=== PATIENT | female | born 1935 | race African-American/Black ===

== ENCOUNTER → 2016-10-17 | Outpatient (CLI) | payer MEDICARE, OTHER ==
[~2016-10-17] MED LIST: ASP81EC PO; ATEN-60 PO; BACL20TA PO; HYDR25TA4 PO; LISI40TA PO; NITR-48 PO; POTA20TA53 PO
[2016-10-17 14:49] LABS: Basophils # (auto) 0 uL; Basophils % (auto) 0.6 % (0.0-2.0); DEFINITIVE VIEW TRANSMISSION; Eosinophils # (auto) 0.2 uL; Eosinophils % (auto) 3.5 % (0.0-7.0); Hematocrit 43.1 % (36.0-46.0); Hemoglobin 14.3 g/dL (12.2-16.2); Lymphocytes # (auto) 2.4 uL; Lymphocytes % (auto) 41.9 % (10.0-50.0); Mean Corpuscular Hemoglobin 26.8 pg (28.0-32.0); Mean Corpuscular Hgb Conc. 33.2 g/dL (32.0-36.0); Mean Corpuscular Volume 80.7 fL (80.0-100.0); Mean Platelet Volume 8.4 fL (7.4-10.4); Monocytes # (auto) 0.7 uL; Monocytes % (auto) 11.9 % (0.0-12.0); Neutrophils # (auto) 2.4 uL; Neutrophils % (auto) 42.1 % (37.0-80.0); Platelet Count (auto) 305 10^3/uL (140-450); White Blood Cell 5.7 10^3/uL (4.4-10.8)
[2016-10-17 14:55] LABS: Urine Bilirubin Negative (Negative); Urine Blood Negative /uL (Negative); Urine Color Yellow (Yellow); Urine Glucose Normal (Normal); Urine Ketone Negative (Negative); Urine RBC 1 /hpf (0 - 4); Urine Squamous Epithelial Cell MOD /hpf (<5); Urine Urobilinogen Normal (Negative); Urine pH 5.5 (5.0-8.0)
[2016-10-17 14:56] LABS: Urine Nitrite POSITIVE (Negative)
[2016-10-17 15:07] LABS: BUN/Creatinine Ratio 12.2; Calcium 8.5 mg/dL (8.5-10.1); Potassium 3.6 mmol/L (3.5-5.1)
== END | disposition home or self-care (01) ==
LOC: LAB 13:15
PROVIDERS: ATTEND Internal Medicine
DX: Z00.00 Encounter for general adult medical examination without abnormal findings (principal); E78.2 Mixed hyperlipidemia; I10 Essential (primary) hypertension; E11.9 Type 2 diabetes mellitus without complications; E55.9 Vitamin D deficiency, unspecified
CPT/HCPCS: 36415; 80048; 80061; 81001; 82306; 83036; 84443; 85025

== ENCOUNTER → 2017-05-01 | Outpatient (CLI) | payer MEDICARE, OTHER ==
[2017-05-01 14:59] LABS: Basophils # (auto) 0 uL; Basophils % (auto) 0.7 % (0.0-2.0); Eosinophils # (auto) 0.1 uL; Eosinophils % (auto) 2.4 % (0.0-7.0); Hematocrit 42.7 % (36.0-46.0); Hemoglobin 14.6 g/dL (12.2-16.2); Lymphocytes # (auto) 2.2 uL; Lymphocytes % (auto) 38.3 % (10.0-50.0); Mean Corpuscular Hemoglobin 27.9 pg (28.0-32.0); Mean Corpuscular Hgb Conc. 34.2 g/dL (32.0-36.0); Mean Corpuscular Volume 81.7 fL (80.0-100.0); Monocytes # (auto) 0.8 uL; Monocytes % (auto) 14.1 % (0.0-12.0); Neutrophils # (auto) 2.6 uL; Neutrophils % (auto) 44.5 % (37.0-80.0); Nucleated Red Blood Cells % 0.7 %; Platelet Count (auto) 243 10^3/uL (140-450); Red Cell Distribution Width 13.7 % (11.8-14.3); White Blood Cell 5.9 10^3/uL (4.4-10.8)
[2017-05-01 15:25] LABS: BUN/Creatinine Ratio 14.4; Bilirubin, Total 1.1 mg/dL (0.2-1.0); Calcium 8.5 mg/dL (8.5-10.1); Potassium 3.6 mmol/L (3.5-5.1); Total Protein 8.4 g/dL (6.4-8.2)
== END | disposition home or self-care (01) ==
LOC: LAB 14:43
PROVIDERS: ATTEND Physician Assistant
DX: I12.9 Hypertensive chronic kidney disease with stage 1 through stage 4 chronic kidney disease, or unspecified chronic kidney disease (principal); N18.3 Chronic kidney disease, stage 3 (moderate); M06.30 Rheumatoid nodule, unspecified site
CPT/HCPCS: 36415; 80053; 80061; 85025

== ENCOUNTER 2017-10-26 13:30 | Emergency (ER) | payer MEDICARE, OTHER ==
[~2017-10-26] VITALS: Ht 157.5 cm; Wt 87.5 kg
[2017-10-26 14:46] VITALS: BP 141/72
[2017-10-26 16:23] LABS: Urine Bacteria MANY /hpf (None Seen); Urine Blood Negative /uL (Negative); Urine Mucus FEW (None Seen); Urine Specific Gravity 1.013 (1.001-1.035); Urine WBC 223 /hpf (0 - 5)
[2017-10-26] MEDS ORDERED: cefTRIAXone SOD 1,000 MG VL IM ONE (16:30)
[2017-10-26] MEDS ORDERED: traMADol HCL 50 MG TAB PO ONE (16:30)
== END 2017-10-26 17:16 | disposition home or self-care (01) ==
LOC: ER 13:36
DX: M48.061 Spinal stenosis, lumbar region without neurogenic claudication (principal); M54.16 Radiculopathy, lumbar region; N39.0 Urinary tract infection, site not specified; R51 Headache; I10 Essential (primary) hypertension; G89.29 Other chronic pain; Z90.710 Acquired absence of both cervix and uterus; Z90.49 Acquired absence of other specified parts of digestive tract; Z88.1 Allergy status to other antibiotic agents
CPT/HCPCS: 70450; 72131; 81001; 96372; 99285; J0696; 93005

== ENCOUNTER 2017-11-19 12:34 | Emergency (ER) | payer MEDICARE, OTHER ==
[~2017-11-19] VITALS: Ht 157.5 cm; Wt 86.2 kg
[2017-11-19 13:11] VITALS: BP 157/59
[2017-11-19] MEDS ORDERED: KETOROLAC TROMETH 60MG/2ML VIAL IM ONE (13:15)
[2017-11-19 14:29] LABS: Urine Bacteria MANY /hpf (None Seen); Urine Blood TRACE /uL (Negative); Urine Specific Gravity 1.012 (1.001-1.035); Urine WBC 179 /hpf (0 - 5)
[2017-11-19] MEDS ORDERED: CIPROFLOXACIN HCL 500 MG TAB PO ONE (15:15)
== END 2017-11-19 15:08 | disposition home or self-care (01) ==
LOC: ER 12:38
DX: N39.0 Urinary tract infection, site not specified (principal); M54.5 Low back pain; I25.810 Atherosclerosis of coronary artery bypass graft(s) without angina pectoris; I12.9 Hypertensive chronic kidney disease with stage 1 through stage 4 chronic kidney disease, or unspecified chronic kidney disease; N18.3 Chronic kidney disease, stage 3 (moderate); Z90.49 Acquired absence of other specified parts of digestive tract; Z90.710 Acquired absence of both cervix and uterus; Z88.6 Allergy status to analgesic agent
CPT/HCPCS: 74176; 81001; 96372; 99285; J1885; 93005

== ENCOUNTER → 2017-12-07 | Outpatient (CLI) | payer MEDICARE, OTHER | END | disposition home or self-care (01) | LOC: LAB 11:05 | PROVIDERS: ATTEND Physician Assistant | DX: N30.00 Acute cystitis without hematuria (principal); T83.511A Infection and inflammatory reaction due to indwelling urethral catheter, initial encounter; I12.9 Hypertensive chronic kidney disease with stage 1 through stage 4 chronic kidney disease, or unspecified chronic kidney disease; E11.22 Type 2 diabetes mellitus with diabetic chronic kidney disease; N18.3 Chronic kidney disease, stage 3 (moderate); Z79.899 Other long term (current) drug therapy; Z79.82 Long term (current) use of aspirin | CPT/HCPCS: 87086; 87088; 87186 ==

== ENCOUNTER 2018-07-30 17:51 | Emergency (ER) | payer MEDICARE, OTHER ==
[~2018-07-30] VITALS: Ht 154.9 cm; Wt 85.3 kg
[~2018-07-30 17:51] MED LIST changes: -NITR-48 PO; +NITR100C44 PO
[2018-07-30 18:56] LABS: Basophils # (auto) 0 uL; Eosinophils # (auto) 0.1 uL; Lymphocytes # (auto) 1.8 uL; Monocytes # (auto) 0.6 uL; Neutrophils # (auto) 2.9 uL; White Blood Cell 5.4 10^3/uL (4.4-10.8)
[2018-07-30 18:59] LABS: Basophils % (auto) 0.5 % (0.0-2.0); Eosinophils % (auto) 1.4 % (0.0-7.0); Hematocrit 43.6 % (36.0-46.0); Hemoglobin 14.7 g/dL (12.2-16.2); Lymphocytes % (auto) 33.2 % (10.0-50.0); Mean Corpuscular Hemoglobin 27.4 pg (28.0-32.0); Mean Corpuscular Hgb Conc. 33.7 g/dL (32.0-36.0); Mean Corpuscular Volume 81.1 fL (80.0-100.0); Monocytes % (auto) 11.6 % (0.0-12.0); Neutrophils % (auto) 53.3 % (37.0-80.0); Nucleated Red Blood Cells % 0.7 %; Platelet Count (auto) 247 10^3/uL (140-450); Red Blood Cells 5.38 10^6/uL (4.0-5.20); Red Cell Distribution Width 13.4 % (11.8-14.3)
[2018-07-30 19:09] LABS: Calcium 8.2 mg/dL (8.5-10.1); Potassium 3.1 mmol/L (3.5-5.1)
[2018-07-30 19:12] LABS: Bilirubin, Total 0.9 mg/dL (0.2-1.0); Total Protein 8.4 g/dL (6.4-8.2)
[2018-07-30 20:49] LABS: Amylase 82 U/L (25-115); Lipase 77 U/L (73-393)
[2018-07-30 23:00] VITALS: BP 148/86
[2018-07-30 23:30] LABS: Urine Bacteria MOD /hpf (None Seen); Urine Blood 1+ /uL (Negative); Urine Hyaline Cast FEW /lpf (0 - 2); Urine Specific Gravity 1.011 (1.001-1.035); Urine WBC 308 /hpf (0 - 5); Urine WBC Clumps PRESENT /hpf (None Seen)
== END 2018-07-31 01:51 | disposition home or self-care (01) ==
LOC: ER 17:56
DX: R10.31 Right lower quadrant pain (principal); I25.10 Atherosclerotic heart disease of native coronary artery without angina pectoris; I12.9 Hypertensive chronic kidney disease with stage 1 through stage 4 chronic kidney disease, or unspecified chronic kidney disease; N18.3 Chronic kidney disease, stage 3 (moderate); M06.9 Rheumatoid arthritis, unspecified; Z90.49 Acquired absence of other specified parts of digestive tract; Z90.710 Acquired absence of both cervix and uterus; Z98.61 Coronary angioplasty status
CPT/HCPCS: 36415; 74176; 80053; 81001; 82150; 83690; 84484; 85025; 93005; 94761

== ENCOUNTER → 2018-09-13 | Outpatient (CLI) | payer MEDICARE, OTHER ==
[2018-09-13 09:11] LABS: Basophils # (auto) 0 uL; Basophils % (auto) 0.6 % (0.0-2.0); Eosinophils # (auto) 0.2 uL; Eosinophils % (auto) 2.7 % (0.0-7.0); Hematocrit 43.3 % (36.0-46.0); Hemoglobin 14.5 g/dL (12.2-16.2); Lymphocytes # (auto) 2.3 uL; Lymphocytes % (auto) 40.7 % (10.0-50.0); Mean Corpuscular Hgb Conc. 33.5 g/dL (32.0-36.0); Mean Corpuscular Volume 80.8 fL (80.0-100.0); Monocytes # (auto) 0.8 uL; Monocytes % (auto) 14.9 % (0.0-12.0); Neutrophils # (auto) 2.3 uL; Neutrophils % (auto) 41.1 % (37.0-80.0); Nucleated Red Blood Cells % 0.1 %; Platelet Count (auto) 245 10^3/uL (140-450); Red Blood Cells 5.36 10^6/uL (4.0-5.20); White Blood Cell 5.7 10^3/uL (4.4-10.8)
[2018-09-13 10:19] LABS: Albumin 3.1 g/dL (3.4-5.0); BUN/Creatinine Ratio 15.7; Calcium 8.8 mg/dL (8.5-10.1); Potassium 3.5 mmol/L (3.5-5.1)
[2018-09-13 10:22] LABS: Bilirubin, Total 0.8 mg/dL (0.2-1.0); Total Protein 8.3 g/dL (6.4-8.2)
== END | disposition home or self-care (01) ==
LOC: LAB 08:59
PROVIDERS: ATTEND Physician Assistant
DX: I12.9 Hypertensive chronic kidney disease with stage 1 through stage 4 chronic kidney disease, or unspecified chronic kidney disease (principal); N18.3 Chronic kidney disease, stage 3 (moderate); M06.9 Rheumatoid arthritis, unspecified; M54.42 Lumbago with sciatica, left side; K57.90 Diverticulosis of intestine, part unspecified, without perforation or abscess without bleeding; G62.9 Polyneuropathy, unspecified
CPT/HCPCS: 36415; 80053; 80061; 85025

== ENCOUNTER → 2021-09-24 | Day surgery (SDC) | payer MEDICARE, OTHER ==
[2021-09-22 10:22] LABS: Basophils # (auto) 0 10 ^3/uL (0-0.2); Basophils % (auto) 0.5 % (0.0-2.0); Eosinophils # (auto) 0.2 10 ^3/uL (0-0.8); Eosinophils % (auto) 3.5 % (0.0-7.0); Hematocrit 40.1 % (36.0-46.0); Hemoglobin 13.7 g/dL (12.2-16.2); Lymphocytes # (auto) 1.8 10 ^3/uL (0.4-5.4); Lymphocytes % (auto) 35.6 % (10.0-50.0); Mean Corpuscular Hemoglobin 27.1 pg (28.0-32.0); Mean Corpuscular Hgb Conc. 34.1 g/dL (32.0-36.0); Mean Corpuscular Volume 79.5 fL (80.0-100.0); Monocytes # (auto) 0.7 10 ^3/uL (0-1.3); Neutrophils # (auto) 2.4 10 ^3/uL (1.6-8.6); Neutrophils % (auto) 46.4 % (37.0-80.0); Nucleated Red Blood Cells % 0.8 %; Red Blood Cells 5.05 10^6/uL (4.0-5.20); Red Cell Distribution Width 14.1 % (11.8-14.3); White Blood Cell 5.2 10^3/uL (4.4-10.8)
[2021-09-22 11:08] LABS: INR 1.1 (0.9-1.15); Partial Thromboplastin Time 25.2 sec (23.6-33.0)
[2021-09-22 11:12] LABS: Potassium 3.5 mmol/L (3.5-5.1)
[2021-09-22 11:19] LABS: Albumin 2.7 g/dL (3.4-5.0); BUN/Creatinine Ratio 11.7; Bilirubin, Total 0.6 mg/dL (0.2-1.0); Calcium 8.3 mg/dL (8.5-10.1); Total Protein 7.3 g/dL (6.4-8.2)
[~2021-09-24] VITALS: Ht 157.5 cm; Wt 75.3 kg
[~2021-09-24] MED LIST changes: -ASP81EC PO; -LISI40TA PO; +LISI40TA11 PO; +NITR-87 PO; -NITR100C44 PO; +POTA-220 PO; -POTA20TA53 PO; +SODIUM CHLORIDE LOCK 10 ML ONE
[2021-09-24] MEDS: fentaNYL CITRATE 100 MCG/2 ML VL ONE ×3 (13:52→13:59)
[2021-09-24] MEDS: MIDAZOLAM HCL 5 MG/ML-1ML VIAL ONE ×4 (13:52→14:10)
[2021-09-24] MEDS: diphenhdrAMINE HCL 50 MG/1 ML VL ONE ×2 (13:52→13:55)
[2021-09-24 15:15] VITALS: BP 181/80
== END | disposition home or self-care (01) ==
LOC: GI 13:11
PROVIDERS: ATTEND Internal Medicine Gastroenterology
DX: R19.4 Change in bowel habit (principal); D12.5 Benign neoplasm of sigmoid colon; K63.5 Polyp of colon; K57.30 Diverticulosis of large intestine without perforation or abscess without bleeding; K64.8 Other hemorrhoids; M19.90 Unspecified osteoarthritis, unspecified site; Z90.49 Acquired absence of other specified parts of digestive tract; Z98.890 Other specified postprocedural states; Z79.899 Other long term (current) drug therapy; Z96.651 Presence of right artificial knee joint; Z88.0 Allergy status to penicillin; Z82.49 Family history of ischemic heart disease and other diseases of the circulatory system; Z98.84 Bariatric surgery status; Z90.710 Acquired absence of both cervix and uterus; Z87.891 Personal history of nicotine dependence; Z20.822 Contact with and (suspected) exposure to COVID-19; Z84.1 Family history of disorders of kidney and ureter
CPT/HCPCS: 36415; 45380; 45385; 80053; 85025; 85610; 85730; 88305; J1200; J2250; J3010; J7030; U0003; 99153; G0500

== ENCOUNTER → 2021-11-26 | Outpatient (CLI) | payer MEDICARE, OTHER ==
[~2021-11-26] MED LIST changes: -SODIUM CHLORIDE LOCK 10 ML ONE
[2021-11-26 12:13] LABS: Basophils # (auto) 0 10 ^3/uL (0-0.2); Basophils % (auto) 0.5 % (0.0-2.0); Eosinophils # (auto) 0.3 10 ^3/uL (0-0.8); Eosinophils % (auto) 5.2 % (0.0-7.0); Hemoglobin 13.6 g/dL (12.2-16.2); Lymphocytes # (auto) 2.8 10 ^3/uL (0.4-5.4); Mean Corpuscular Hemoglobin 27.1 pg (28.0-32.0); Mean Corpuscular Hgb Conc. 33.9 g/dL (32.0-36.0); Mean Corpuscular Volume 79.9 fL (80.0-100.0); Monocytes # (auto) 0.7 10 ^3/uL (0-1.3); Monocytes % (auto) 12.2 % (0.0-12.0); Neutrophils % (auto) 34.1 % (37.0-80.0); Nucleated Red Blood Cells % 0.2 %; Red Cell Distribution Width 14.3 % (11.8-14.3); White Blood Cell 5.9 10^3/uL (4.4-10.8)
[2021-11-26 12:54] LABS: Albumin 2.8 g/dL (3.4-5.0); Potassium 3.2 mmol/L (3.5-5.1)
[2021-11-26 12:58] LABS: BUN/Creatinine Ratio 14.3; Bilirubin, Total 0.7 mg/dL (0.2-1.0); Total Protein 7.7 g/dL (6.4-8.2)
== END | disposition home or self-care (01) ==
LOC: LAB 12:01
PROVIDERS: ATTEND Nurse Practitioner Family
DX: I10 Essential (primary) hypertension (principal); E66.01 Morbid (severe) obesity due to excess calories; G62.9 Polyneuropathy, unspecified
CPT/HCPCS: 36415; 80053; 80061; 85025

== ENCOUNTER → 2024-04-08 | Outpatient (CLI) | payer OTHER ==
[~2024-04-08] MED LIST changes: -LISI40TA11 PO; +LISI40TA16 PO
[2024-04-08 15:48] LABS: Basophils # (auto) 0 10 ^3/uL (0-0.2); Basophils % (auto) 0.8 % (0.0-2.0); Eosinophils # (auto) 0.3 10 ^3/uL (0-0.8); Hematocrit 44.3 % (36.0-46.0); Hemoglobin 15.1 g/dL (12.2-16.2); Lymphocytes # (auto) 2.5 10 ^3/uL (0.4-5.4); Lymphocytes % (auto) 46.7 % (10.0-50.0); Mean Corpuscular Hemoglobin 27.7 pg (28.0-32.0); Mean Corpuscular Hgb Conc. 34.1 g/dL (32.0-36.0); Mean Corpuscular Volume 81.2 fL (80.0-100.0); Monocytes # (auto) 0.7 10 ^3/uL (0-1.3); Monocytes % (auto) 11.9 % (0.0-12.0); Neutrophils # (auto) 1.9 10 ^3/uL (1.6-8.6); Neutrophils % (auto) 34.6 % (37.0-80.0); Nucleated Red Blood Cells % 0.2 %; Platelet Count (auto) 223 10^3/uL (140-450); Red Blood Cells 5.46 10^6/uL (4.0-5.20); Red Cell Distribution Width 13.8 % (11.8-14.3); White Blood Cell 5.5 10^3/uL (4.4-10.8)
[2024-04-08 17:35] LABS: Alanine Aminotransferase 24 U/L (7-40); Albumin 3.7 g/dL (3.2-4.8); Alkaline Phosphatase 76 U/L (46-116); Anion Gap 6 (5-15); Aspartate Aminotransferase 38 U/L (13-40); BUN/Creatinine Ratio 13.9 (10.0-20.0); Blood Urea Nitrogen 17 mg/dL (9-23); CRP High Sensitivity < 0.02 mg/dL (<1.0); Calcium 9.6 mg/dL (8.7-10.4); Carbon Dioxide 29 mmol/L (20-31); Chloride 105 mmol/L (98-107); Glucose 93 mg/dL (74-106); LDL Cholesterol 102 mg/dL (< 100); Potassium 4.1 mmol/L (3.5-5.1); Sodium 140 mmol/L (136-145); Triglycerides 94 mg/dL (< 150)
[2024-04-08 17:36] LABS: Bilirubin, Total 0.9 mg/dL (0.2-1.0); Cholesterol 177 mg/dL (< 200); HDL Cholesterol 51 mg/dL (40-59); Total Protein 7.5 g/dL (5.7-8.2)
== END | disposition home or self-care (01) ==
LOC: LAB 15:30
PROVIDERS: ATTEND Nurse Practitioner Family
DX: I12.9 Hypertensive chronic kidney disease with stage 1 through stage 4 chronic kidney disease, or unspecified chronic kidney disease (principal); N18.30 Chronic kidney disease, stage 3 unspecified; M05.79 Rheumatoid arthritis with rheumatoid factor of multiple sites without organ or systems involvement; E55.9 Vitamin D deficiency, unspecified; E66.9 Obesity, unspecified; M81.0 Age-related osteoporosis without current pathological fracture
CPT/HCPCS: 36415; 80053; 80061; 82306; 84443; 85025; 86141

== ENCOUNTER 2024-07-31 18:54 | Inpatient (IN) | payer MEDICARE, OTHER ==
[~2024-07-31] VITALS: Ht 157.5 cm; Wt 78.0 kg
--- NOTE | 2024-07-31 19:36 | ED.PDOC ---
GI ASSESSMENT HPI Comments 88y F who presents to the ED for chief complaint of vomiting. Pt states she has been having vomiting and diarrhea for the past 2 days. Pt states she has been having constant vomiting for the past 1 days and states she not been able to keep anything down. Pt otherwise denies any other symptoms. Pt denies any recent sick contacts or changes to diet. Pt denies any other symptoms at this time. Chief Complaint: vomiting Time Seen by MD: 19:33 Primary Care Provider: LANG Reviewed Notes: Nurses Notes, Medications, Allergies (Allergies listed above) Allergies: Coded Allergies: Penicillins (Verified Allergy, Mild, 04/12/23) Uncoded Allergies: ALL CILLINS, FLAGYL, VICODIN (Allergy, Intermediate, N/V ABDOMINAL PAIN, 02/25/10) Home Meds Active Scripts Nitrofurantoin Monohydrate Mac (Macrobid) 100 Mg Cap, 100 MG PO BID, #14 CAP Prov:GARY GEORGE MD 04/17/16 Reported Medications Baclofen (Baclofen) 20 Mg Tab, 1 TAB PO TID, #90 TAB 2 Refills 04/14/16 Atenolol (Atenolol) 25 Mg Tab, 1 TAB PO DAILY, #30 TAB 5 Refills 04/14/16 Potassium Chloride (Klor-Con M20) 20 Meq Tab, 20 MEQ PO DAILY 11/14/12 Lisinopril (Lisinopril) 40 Mg Tab, 40 MG PO DAILY 11/14/12 Hydrochlorothiazide (Hydrochlorothiazide) 25 Mg Tab, 25 MG PO DAILY 11/14/12 Information Source: Patient, Relative Mode of Arrival: Wheelchair Brought in by: son Timing: Days Duration: Since onset Prehospital treatment: None Quality: None Vomitus: Soft Stool: Loose Severity: Moderate Recent: None Pain Location: None Modifying Factors: Nothing Associated sign and symptoms: Vomiting, Diarrhea Past Medical History PAST MEDICAL HISTORY: CAD, CKF, Gallstones, HTN Surgical History: Cholecystectomy, Hysterectomy, PTCA ROOM MAID History: No Pertinent ROOM MAID History Family History Family History: Unknown, Unobtainable Social History Smoker: Non-Smoker Alcohol: Denies ETOH Use Drugs: Denies Drug Use Lives In: Home Constitutional: denies: chills, diaphoresis, fatigue, fever, malaise, sweats, weakness, others EENTM: denies: blurred vision, double vision, ear bleeding, ear discharge, ear drainage, ear pain, ear ringing, eye pain, eye redness, hearing loss, mouth pain, mouth swelling, nasal discharge, nose bleeding, nose congestion, nose pain, photophobia, tearing, throat pain, throat swelling, voice changes, others Respiratory: denies: cough, hemoptysis, orthopnea, SOB at rest, shortness of breath, SOB with excertion, stridor, wheezing, others Cardiovascular: denies: chest pain, dizzy spells, diaphoresis, Dyspnea on exertion, edema, irregular heart beat, left arm pain, lightheadedness, palpitations, PND, syncope, others Gastrointestinal: reports: diarrhea, vomiting; denies: abdomen distended, abdominal pain, blood streaked bowels, constipated, dysphagia, difficulty swallowing, hematemesis, melena, nausea, poor appetite, poor fluid intake, rectal bleeding, rectal pain, others Genitourinary: denies: abnormal vagina bleeding, burning, dyspareunia, dysuria, flank pain, frequency, hematuria, incontinence, pain, , vagina discharge, urgency, others Neurological: denies: dizziness, fainting, headache, left sided numbness, left sided weakness, numbness, paresthesia, pre-existing deficit, right sided numbness, right sided weakness, seizure, speech problems, tingling, tremors, weakness, others Musculoskeletal: denies: back pain, gout, joint pain, joint swelling, muscle pain, muscle stiffness, neck pain, others Integumetry: denies: bruises, change in color, change in hair/nails, dryness, laceration, lesions, lumps, rash, wounds, others Allergic/Immunocompromised: denies: Difficulty Healing, Frequent Infections, Hives, Itching, others Hematologic/Lymphatic: denies: anemia, blood clots, easy bleeding, easy bruising, swollen glands, others Endocrine: denies: excessive hunger, excessive sweating, excessive thirst, excessive urination, flushing, intolerance to cold, intolerance to heat, unexplained weight gain, unexplained weight loss, others Psychiatric: denies: anxiety, bipolar disorder, depression, hopeless, panic disorder, schizophrenia, sleepless, suicidal, others All Other Systems: Reviewed and Negative Physical Exam General Appearance: Moderate Distress HEENT: Normal ENT Inspection, Pharynx Normal, TMs Normal Neck: Full Range of Motion, Non-Tender, Normal, Normal Inspection Respiratory: Chest Non-Tender, Lungs Clear, No Accessory Muscle Use, No Respiratory Distress, Normal Breath Sounds Cardiovascular: No Edema, No JVD, No Murmur, No Gallop, Normal Peripheral Pu lses, Regular Rate/Rhythm Breast Exam: Deferred Gastrointestinal: No Organomegaly, Normal Bowel Sounds, Soft, Tenderness Genitalia: Deferred Pelvic: Deferred Rectal: Deferred Extremities: No calf tenderness, Normal capillary refill, Normal inspection, Normal range of motion, Non-tender, No pedal edema Musculoskeletal : Apperance: Normal Neurologic: Alert, body and fender worker II-XII nml as Tested, Motor Weakness, Normal Affect, Normal Mood, No Sensory Deficits Cerebellar Function: Normal Reflexes: Normal Skin: Dry, Normal Color, Warm Lymphatic: No Adenopathy EKG EKG : Pulse Rate (adult): 80 [place]: Normal Cardiac Rhythm: NSR Block: LBBB Hypertrophy: None ST: Normal Was a procedure done? Was a procedure done?: No GI differential Dx Differential Diagnosis: Appendicitis, Cholecystitis, Constipation, Diverticular disease, Gastritis/PUD, Gastroenteritis, Pancreatitis, UTI, Dehydration, Food Poisoning, Bacterial, Viral, Stress Ulcer, Kidney Stone Other Differential Diagnosis enteritis, colitis X-Ray, Labs, Meds, VS Vital Signs Date Time Temp Pulse Resp B/P (MAP) Pulse Ox O2 Delivery O2 Flow Rate FiO2 07/31/24 20:56 86 16 96 Room Air* 0 21 07/31/24 20:56 98.9 84 16 146/92 (110) 97 98.9 07/31/24 19:36 80 07/31/24 19:05 80 07/31/24 19:01 97.7 56 20 140/85 (103) 98 Lab Test 07/31/24 19:29 Range/Units White Blood Count 7.1 4.4-10.8 10^3/uL Red Blood Count 5.95 H 4.0-5.20 10^6/uL Hemoglobin 15.9 12.2-16.2 g/dL Hematocrit 48.0 H 36.0-46.0 % Mean Corpuscular Volume 80.7 80.0-100.0 fL Mean Corpuscular Hemoglobin 26.7 L 28.0-32.0 pg Mean Corpuscular Hemoglobin Concent 33.0 32.0-36.0 g/dL Red Cell Distribution Width 13.8 11.8-14.3 % Platelet Count 319 140-450 10^3/uL Mean Platelet Volume 7.7 6.9-10.8 fL Neutrophils (%) (Auto) 64.2 37.0-80.0 % Lymphocytes (%) (Auto) 22.3 10.0-50.0 % Monocytes (%) (Auto) 11.7 0.0-12.0 % Eosinophils (%) (Auto) 1.3 0.0-7.0 % Basophils (%) (Auto) 0.5 0.0-2.0 % Neutrophils # (Auto) 4.6 1.6-8.6 10 ^3/uL Lymphocytes # (Auto) 1.6 0.4-5.4 10 ^3/uL Monocytes # (Auto) 0.8 0-1.3 10 ^3/uL Eosinophils # (Auto) 0.1 0-0.8 10 ^3/uL Basophils # (Auto) 0 0-0.2 10 ^3/uL Nucleated Red Blood Cells 0.3 % Sodium Level 139 136-145 mmol/L Potassium Level 3.2 L 3.5-5.1 mmol/L Chloride Level 104 98-107 mmol/L Carbon Dioxide Level 24 20-31 mmol/L Anion Gap 11 5-15 Blood Urea Nitrogen 13 9-23 mg/dL Creatinine 0.89 0.550-1.02 mg/dL Glomerular Filtration Rate Calc 63 >90 mL/min BUN/Creatinine Ratio 14.6 10.0-20.0 Serum Glucose 151 H 74-106 mg/dL Calcium Level 9.3 8.7-10.4 mg/dL Total Bilirubin 0.9 0.2-1.0 mg/dL Aspartate Amino Transferase (AST) 26 13-40 U/L Alanine Aminotransferase (ALT) 13 7-40 U/L Alkaline Phosphatase 78 46-116 U/L Total Protein 7.7 5.7-8.2 g/dL Albumin 4.1 3.2-4.8 g/dL Lipase 27 12-53 U/L Exam: CT CT AB PEL WO CON-NO ORAL OR IV IMPRESSION: 1. Patient is status post cholecystectomy. 2. No findings of bowel obstruction 3. Urine gas noted in the bladder may be secondary to previous attempted catheterization catheter removal. May also be secondary to infection. At this time the patient's CBC is within normal limits The chemistry panel within normal limits An IV Hep-Lock was established. The patient was given normal saline as a bolus The patient was being admitted to the hospitalist at this time. Images Reviewed?: Images reviewed and evaluated by me Time of 1ST Reevaluation: 20:00 Reevaluation 1ST: Unchanged Patient Education/Counseling: Diagnosis, Treatment, Prognosis Family Education/Counseling: Diagnosis, Treatment, Prognosis Additional Information - I reviewed the following notes from patient's past medical encounters: - The following tests were ordered, and results were reviewed by me: (Labs, X- Ray, EKG): cbc, cmp, ekgx1, lipase, ua, ct abdomen and pelvis - Additional information was gathered from interviewing the following independent Historian: (Family, Other Providers, EMT): pt son - I reviewed and agreed with the following test results read by other provider: (X-ray, CT, US): radiologist - I discussed treatments and results with medical personnel and: (consultants, family): none Departure 1 Departure Time of Disposition: 21:15 Impression: Primary Impression: Intractable abdominal pain Additional Impression: Intractable vomiting Disposition: ADMITTED INPATIENT Admit to: Med Surg Condition: Fair Critical Care Note Critical Care Time?: No Stability Stability form required: Yes Unstable for transfer: ED Physician Assesment (Clinical assesment) Heart Score Heart Score: Heart Score Response (Comments) Value History N/A 0 EKG N/A 0 Age N/A 0 Risk Factors N/A 0 Troponin N/A 0 Total 0 I personally scribed for SHIRA KEMP MD ([email or web address]) on 07/31/24 at 19:36. Electronically submitted by Rachel Miller ([email or web address]). I personally scribed for SHIRA KEMP MD (LUIS) on 07/31/24 at 20:50. Electronically submitted by Rachel SCHUMACHER). SHIRA KEMP MD Jul 31, 2024 19:36
[2024-07-31 19:43] LABS: Basophils # (auto) 0 10 ^3/uL (0-0.2); Eosinophils # (auto) 0.1 10 ^3/uL (0-0.8); Lymphocytes # (auto) 1.6 10 ^3/uL (0.4-5.4); Monocytes # (auto) 0.8 10 ^3/uL (0-1.3)
[2024-07-31 19:45] LABS: Basophils % (auto) 0.5 % (0.0-2.0); Eosinophils % (auto) 1.3 % (0.0-7.0); Hemoglobin 15.9 g/dL (12.2-16.2); Lymphocytes % (auto) 22.3 % (10.0-50.0); Mean Corpuscular Hemoglobin 26.7 pg (28.0-32.0); Mean Corpuscular Volume 80.7 fL (80.0-100.0); Monocytes % (auto) 11.7 % (0.0-12.0); Neutrophils # (auto) 4.6 10 ^3/uL (1.6-8.6); Neutrophils % (auto) 64.2 % (37.0-80.0); Nucleated Red Blood Cells % 0.3 %; Platelet Count (auto) 319 10^3/uL (140-450); Red Blood Cells 5.95 10^6/uL (4.0-5.20); Red Cell Distribution Width 13.8 % (11.8-14.3); White Blood Cell 7.1 10^3/uL (4.4-10.8)
[2024-07-31 20:01] LABS: Alanine Aminotransferase 13 U/L (7-40); Albumin 4.1 g/dL (3.2-4.8); Alkaline Phosphatase 78 U/L (46-116); Anion Gap 11 (5-15); Aspartate Aminotransferase 26 U/L (13-40); BUN/Creatinine Ratio 14.6 (10.0-20.0); Blood Urea Nitrogen 13 mg/dL (9-23); Calcium 9.3 mg/dL (8.7-10.4); Carbon Dioxide 24 mmol/L (20-31); Chloride 104 mmol/L (98-107); Lipase 27 U/L (12-53); Sodium 139 mmol/L (136-145)
[2024-07-31 20:02] LABS: Bilirubin, Total 0.9 mg/dL (0.2-1.0); Total Protein 7.7 g/dL (5.7-8.2)
[2024-07-31 20:21] LABS: Glucose 151 mg/dL (74-106); Potassium 3.2 mmol/L (3.5-5.1)
--- NOTE | 2024-07-31 20:42 | DVH ---
Exam: CT CT AB PEL WO CON-NO ORAL OR IV History: pain Comparison Study: None available at time of dictation. TECHNIQUE: Multidetector CT of the abdomen was performed from lung bases to pubic symphysis. Imaging was performed without IV contrast. Axial, coronal and sagittal multiplanar reformats were obtained fr om the axial data set by the technologist. Radiation Dose Information: CT Dose: CTDI volume is 8.04 mGy. Dose-length product is 483.57 mGy*cm FINDINGS: Evaluation of solid organs is limited due to lack of intravenous contrast use. Findings: Lung Bases: No acute or significant lung base finding. Normal heart size. No pleural or pericardial effusion. Liver: The liver is normal in size. No focal lesions. Gallbladder and Biliary Tree: Patient is status post cholecystectomy. Spleen: Unremarkable Pancreas: The pancreas is grossly normal in appearance. Adrenal Glands: Unremarkable Kidneys: Kidneys are grossly normal without calculi or hydronephrosis. Bladder: Air in the bladder which may be secondary to prior catheterization or attempted catheterizat ion or infection. Bowel: The stomach is grossly normal in appearance. Small bowel and colon are normal in caliber and d istribution. The appendix is not visualized; however, no secondary findings of acute appendicitis id entified. Ascites: Absent Lymphadenopathy: No mesenteric, retroperitoneal or periportal lymphadenopathy. Abdominal Wall and Mesentery: Unremarkable. Vasculature: The visualized abdominal aorta is normal in size and caliber. Evaluation of abdominal a nd pelvic vessels is limited due to lack of intravenous contrast. Pelvic Organs: Unremarkable Musculoskeletal: No aggressive focal bony lesions, acute fractures or dislocation. Mild compression o f L1 age indeterminate. Grade 1 anterior spondylolisthesis at L4-5. Soft tissues: Unremarkable IMPRESSION: 1. Patient is status post cholecystectomy. 2. No findings of bowel obstruction 3. Urine gas noted in the bladder may be secondary to previous attempted catheterization catheter rem oval. May also be secondary to infection. Radiation optimization: All CT scans at this facility use at least one of these dose optimization te chniques: automated exposure control mA and/or kV adjustment per patient size (includes targeted exa ms where dose is matched to clinical indication) or iterative reconstruction.
[2024-07-31 20:56] VITALS: PULSE 86; RESP 16; O2SAT 96
[2024-07-31] MEDS: ONDANSETRON HCL 4 MG/2 ML VIAL IV ONE (21:53)
[2024-07-31] MEDS ORDERED: ONDANSETRON HCL 4 MG/2 ML VIAL IV PRN (22:00)
[2024-07-31] MEDS ORDERED: HYDROcodone-ACET 5/325MG TAB PO PRN (22:00)
[2024-07-31] MEDS ORDERED: ACETAMINOPHEN 325 MG TAB PO PRN (22:00)
[2024-08-01] VITALS (8 sets, daily range): BP systolic 126–163; BP diastolic 57–84; PULSE 52–84; RESP 16–18; TEMP 97.3–98.4; O2SAT 94–100
--- NOTE | 2024-08-01 00:36 | DVHHP2 ---
History of Present Illness Reason for Visit: Nausea and vomiting History of Present Illness 88-year-old female presents for evaluation of nausea and vomiting. Patient reports a two day history of nausea, vomiting and several episodes of diarrhea. She reports having mild epigastric pain due to the constant vomiting. Denies fever or chills. No other acute complaints reported. Past Medical History Hypertension, chronic kidney disease and CAD Past Surgical History Hysterectomy, PTCA and cholecystectomy Family History Noncontributory Smoke: No ALCOHOL: none Drugs: None Lives: with Family Review of Systems Review of Systems Review of systems are currently negative otherwise addressed in HPI. Allergies: Coded Allergies: Penicillins (Verified Allergy, Mild, 04/12/23) Uncoded Allergies: ALL CILLINS, FLAGYL, VICODIN (Allergy, Intermediate, N/V ABDOMINAL PAIN, 02/25/10) Medications Current Medications Medications Dose Ordered Sig/Hallie Route Start Time Stop Time Status Last Admin Dose Admin Atenolol 25 mg DAILY PO 08/01/24 10:00 Hydrochlorothiazide 25 mg DAILY PO 08/01/24 10:00 Lisinopril 20 mg DAILY PO 08/01/24 10:00 Acetaminophen/ Hydrocodone Bitart 1 tab Q4HP PRN PO 07/31/24 22:00 Ondansetron HCl 4 mg Q4HP PRN IV 07/31/24 22:00 Acetaminophen 650 mg Q6HP PRN PO 07/31/24 22:00 Exam Vital Signs Vital Signs Date Time Temp Pulse Resp B/P (MAP) Pulse Ox O2 Delivery O2 Flow Rate FiO2 07/31/24 20:56 86 16 96 Room Air* 0 21 07/31/24 20:56 98.9 146/92 (110) 98.9 Exam Gen: 88-year-old female in mild distress. Skin: Warm, dry, normal color and texture, no rash. HEENT: Normocephalic atraumatic, mucous membranes moist and pink. Neck: Cervical and supraclavicular nodes normal without enlargement, trachea is midline, thyroid gland is normal without masses. Pulmonary: Clear to auscultation and percussion bilaterally. Cardiac: Regular rate and rhythm. No murmur Abdomen: Soft, nontender, nondistended, bowel sounds present all 4 quadrants, no guarding, no rigidity, no organomegaly. Extremities: No cyanosis, clubbing, no edema Neuro: Cranial nerves II through XII grossly intact, normal affect and speech, no focal motor deficits. Labs/Xrays ORDERING PHYSICIAN: SHIRA KEMP MD PROCEDURE(s): ABPL - CT AB PEL WO CON-NO ORAL OR IV REASON: pain ORDER NUMBER(s): [id number], ACCESSION NUMBER(s): [id number] Exam: CT CT AB PEL WO CON-NO ORAL OR IV History: pain Comparison Study: None available at time of dictation. TECHNIQUE: Multidetector CT of the abdomen was performed from lung bases to pubic symphysis. Imaging was performed without IV contrast. Axial, coronal and sagittal multiplanar reformats were obtained from the axial data set by the technologist. Radiation Dose Information: CT Dose: CTDI volume is 8.04 mGy. Dose-length product is 483.57 mGy*cm FINDINGS: Evaluation of solid organs is limited due to lack of intravenous contrast use. Findings: Lung Bases: No acute or significant lung base finding. Normal heart size. No p leural or pericardial effusion. Liver: The liver is normal in size. No focal lesions. Gallbladder and Biliary Tree: Patient is status post cholecystectomy. Spleen: Unremarkable Pancreas: The pancreas is grossly normal in appearance. Adrenal Glands: Unremarkable Kidneys: Kidneys are grossly normal without calculi or hydronephrosis. Bladder: Air in the bladder which may be secondary to prior catheterization or attempted catheterization or infection. Bowel: The stomach is grossly normal in appearance. Small bowel and colon are normal in caliber and distribution. The appendix is not visualized; however, no secondary findings of acute appendicitis identified. Ascites: Absent Lymphadenopathy: No mesenteric, retroperitoneal or periportal lymphadenopathy. Abdominal Wall and Mesentery: Unremarkable. Vasculature: The visualized abdominal aorta is normal in size and caliber. Evaluation of abdominal and pelvic vessels is limited due to lack of intravenous contrast. Pelvic Organs: Unremarkable Musculoskeletal: No aggressive focal bony lesions, acute fractures or dislocation. Mild compression of L1 age indeterminate. Grade 1 anterior spondylolisthesis at L4-5. Soft tissues: Unremarkable IMPRESSION: 1. Patient is status post cholecystectomy. 2. No findings of bowel obstruction 3. Urine gas noted in the bladder may be secondary to previous attempted catheterization catheter removal. May also be secondary to infection. Radiation optimization: All CT scans at this facility use at least one of these dose optimization techniques: automated exposure control mA and/or kV adjustment per patient size (includes targeted exams where dose is matched to clinical indication) or iterative reconstruction. Labs Test 07/31/24 19:29 Range/Units White Blood Count 7.1 4.4-10.8 10^3/uL Red Blood Count 5.95 H 4.0-5.20 10^6/uL Hemoglobin 15.9 12.2-16.2 g/dL Hematocrit 48.0 H 36.0-46.0 % Mean Corpuscular Volume 80.7 80.0-100.0 fL Mean Corpuscular Hemoglobin 26.7 L 28.0-32.0 pg Mean Corpuscular Hemoglobin Concent 33.0 32.0-36.0 g/dL Red Cell Distribution Width 13.8 11.8-14.3 % Platelet Count 319 140-450 10^3/uL Mean Platelet Volume 7.7 6.9-10.8 fL Neutrophils (%) (Auto) 64.2 37.0-80.0 % Lymphocytes (%) (Auto) 22.3 10.0-50.0 % Monocytes (%) (Auto) 11.7 0.0-12.0 % Eosinophils (%) (Auto) 1.3 0.0-7.0 % Basophils (%) (Auto) 0.5 0.0-2.0 % Neutrophils # (Auto) 4.6 1.6-8.6 10 ^3/uL Lymphocytes # (Auto) 1.6 0.4-5.4 10 ^3/uL Monocytes # (Auto) 0.8 0-1.3 10 ^3/uL Eosinophils # (Auto) 0.1 0-0.8 10 ^3/uL Basophils # (Auto) 0 0-0.2 10 ^3/uL Nucleated Red Blood Cells 0.3 % Sodium Level 139 136-145 mmol/L Potassium Level 3.2 L 3.5-5.1 mmol/L Chloride Level 104 98-107 mmol/L Carbon Dioxide Level 24 20-31 mmol/L Anion Gap 11 5-15 Blood Urea Nitrogen 13 9-23 mg/dL Creatinine 0.89 0.550-1.02 mg/dL Glomerular Filtration Rate Calc 63 >90 mL/min BUN/Creatinine Ratio 14.6 10.0-20.0 Serum Glucose 151 H 74-106 mg/dL Calcium Level 9.3 8.7-10.4 mg/dL Total Bilirubin 0.9 0.2-1.0 mg/dL Aspartate Amino Transferase (AST) 26 13-40 U/L Alanine Aminotransferase (ALT) 13 7-40 U/L Alkaline Phosphatase 78 46-116 U/L Total Protein 7.7 5.7-8.2 g/dL Albumin 4.1 3.2-4.8 g/dL Lipase 27 12-53 U/L Assessment/Plan Assessment/Plan Assessment Acute abdominal pain Acute gastroenteritis Hypokalemia Hypertension Plan Admit the patient to Med surge to the hospitalist Cornelia Clear liquid diet Pain management Replete electrolytes Resume home medications Continue treatment per orders. Plan discussed with: Patient My Orders Orders - BLANCA ROTH Procedure Category Date Status Time Stool Bacterial AYLIN 07/31/24 Logged Culture 21:59 Sod Chl 0.9%/ Kcl PHA 07/31/24 In Process 20meq 22:00 Atenolol Tablet PHA 08/01/24 In Process (Tenormin Tablet) 10:00 Hydrochlorothiazide PHA 08/01/24 In Process Tablet (Hydrochlorot 10:00 Lisinopril Tablet PHA 08/01/24 In Process (Zestril Tablet) 10:00 Basic Metabolic Panel LAB 08/01/24 Logged 04:00 Admit ADMIT 07/31/24 Transmitted 21:59 Hydrocodone-Acet PHA 07/31/24 In Process 5/325mg Tab ([place] 22:00 Ondansetron Hcl PHA 07/31/24 In Process (Zofran) 22:00 Condition: Stable STACI 07/31/24 In Process 21:59 Acetaminophen Tablet PHA 07/31/24 In Process (Tylenol Tablet) 22:00 Clear Liq Diet DIET 08/01/24 Transmitted Breakfast Bedrest With Bathroom STACI 07/31/24 In Process Privileg 21:59 Date of Service: Jul 31, 2024 Billing Provider: BLANCA ROTH Common Visit Codes: [id number] INP/OBS CARE (MOD) BLANCA ROTH Aug 01, 2024 00:36
[2024-08-01] MEDS: SOD CHL 0.9%/ KCL 20MEQ 1,000 ML IV ONE (02:33)
[2024-08-01] MEDS: PNEUMOCOCCAL VACC POLYS 25 MCG/0.5 ML VIAL IM ONE (05:15)
[2024-08-01] MEDS: LISINOPRIL 20 MG TAB PO SCH (10:25)
[2024-08-01] MEDS: hydroCHLOROthiazide 25 MG TAB PO SCH (10:25)
--- NOTE | 2024-08-01 10:25 | ECG ---
[facility] Test Date: 2024-07-31 Test Time: 19:05:13 Pat Name: NATHANIEL VEGA Department: ER Room: 0216 A Gender: F Crisis Nurse: VIJAY : [id number] Requested By: EMERGENCY EMERGENCY Order Number: [id number] Reading MD: Ike Gu Measurements Intervals [place] Rate: 80 P: 36 ME: 175 QRS: -11 QRSD: 139 T: 47 QT: 441 QTc: 509 Interpretive Statements Sinus rhythm Left bundle branch block Electronically Signed On 08-01-2024 22:25:01 PST by Ike Gu Please click the below link to view image of tracing.
[2024-08-01] MEDS: ATENOLOL 25 MG TAB PO SCH (10:26)
[2024-08-01 11:01] LABS: Chloride 102 mmol/L (98-107); Potassium 3.6 mmol/L (3.5-5.1); Sodium 142 mmol/L (136-145)
[2024-08-01 11:02] LABS: Anion Gap 12 (5-15); Calcium 9.3 mg/dL (8.7-10.4); Carbon Dioxide 28 mmol/L (20-31)
[2024-08-01 11:07] LABS: BUN/Creatinine Ratio 13.8 (10.0-20.0); Blood Urea Nitrogen 19 mg/dL (9-23)
[2024-08-01 11:15] LABS: Glucose 140 mg/dL (74-106)
[2024-08-01 11:45] LABS: Hepatitis B Surface Antigen Negative (Negative)
[2024-08-01 12:05] LABS: Hepatitis C Antibody Reactive (Negative)
[2024-08-01 13:01] LABS: Urine Bacteria MANY /hpf (None Seen); Urine Blood 1+ /uL (Negative); Urine Color Yellow (Yellow); Urine Hyaline Cast MANY /lpf (0 - 2); Urine Protein, UAD TRACE (Negative); Urine Specific Gravity 1.015 (1.001-1.035); Urine Squamous Epithelial Cell FEW /hpf (<5); Urine Urobilinogen Normal (Negative); Urine WBC 92 /HPF (0-5); Urine WBC Clumps PRESENT /hpf (None Seen)
[2024-08-01 13:02] LABS: Urine Clarity Cloudy (Clear)
--- NOTE | 2024-08-01 13:19 | DVHPN2 ---
Reviewed: Care Plan, H&P, Labs, Medications, Previous Orders, Radiology Changes from previous H/P or p: No Changes Objective Vitals Vital Signs Date Time Temp Pulse Resp B/P (MAP) Pulse Ox O2 Delivery O2 Flow Rate FiO2 08/01/24 13:03 97.9 82 18 153/72 (99) 99 97.9 08/01/24 08:02 Room Air* 0 21 Intake/Output Intake and Output 08/01/24 07:00 Intake Total 150 ml Balance 150 ml Intake Oral 150 ml Tube Feeding 0 ml # Voids 2 Medications Current Medications Medications Dose Ordered Sig/Hallie Route Start Time Stop Time Status Last Admin Dose Admin Atenolol 25 mg DAILY PO 08/01/24 10:00 08/01/24 10:26 25 MG Hydrochlorothiazide 25 mg DAILY PO 08/01/24 10:00 08/01/24 10:25 25 MG Lisinopril 20 mg DAILY PO 08/01/24 10:00 08/01/24 10:25 20 MG Acetaminophen/ Hydrocodone Bitart 1 tab Q4HP PRN PO 07/31/24 22:00 Ondansetron HCl 4 mg Q4HP PRN IV 07/31/24 22:00 Acetaminophen 650 mg Q6HP PRN PO 07/31/24 22:00 Laboratory Results Laboratory Tests 07/31/24 19:29 08/01/24 09:54 Chemistry Test 07/31/24 19:29 08/01/24 09:54 Albumin 4.1 g/dL (3.2-4.8) Calcium Level 9.3 mg/dL (8.7-10.4) 9.3 mg/dL (8.7-10.4) Total Protein 7.7 g/dL (5.7-8.2) Lipid panel Test 07/31/24 19: Lipase 27 U/L (12-53) LFT Test 07/31/24 19: Alanine Aminotransferase (ALT) 13 U/L (7-40) Alkaline Phosphatase 78 U/L (46-116) Aspartate Amino Transferase (AST) 26 U/L (13-40) Total Bilirubin 0.9 mg/dL (0.2-1.0) Urinalysis Test 08/01/24 12:00 Urine Color Yellow (Yellow) Urine Clarity Cloudy (Clear) H Urine pH 5.0 (5.0-9.0) Urine Specific [place] 1.015 (1.001-1.035) Urine Protein Trace (Negative) H Urine Ketones Negative (Negative) Urine Blood 1+ /uL (Negative) H Urine Nitrite Negative (Negative) Urine Bilirubin Negative (Negative) Urine Urobilinogen Normal mg/dL (Negative) Urine Leukocyte Esterase 3+ /uL (Negative) Urine RBC 5 /hpf (0 - 4) Urine WBC Clumps Present /hpf (None Seen) Urine Microscopic WBC 92 /HPF (0-5) H Urine Squamous Epithelial Cells Few /hpf (<5) Urine Bacteria Many /hpf (None Seen) H Urine Hyaline Casts Many /lpf (0 - 2) Urine Glucose Normal mg/dL (Normal) Labs and/or images reviewed: Labs reviewed by me, Image(s) reviewed by me Assessment/Plan Assessment/Plan Acute abdominal pain Sepsis secondary to urinary tract infection Acute pyelonephritis and UTI: Blood cultures urine cultures Rocephin Acute gastroenteritis Acute hypokalemia Hypertension Acute dehydration Hep C antibody positive Time spent 45 minutes Plan discussed with: Patient My Orders Orders - INDER BECKWITH MD Procedure Category Date Status Time Blood Culture AYLIN 08/01/24 Transmitted 13:17 Urine Bacterial AYLIN 08/01/24 Transmitted Culture 13:17 Date of Service: Aug 01, 2024 Billing Provider: INDER BECKWITH MD Common Visit Codes: [id number] INP/OBS CARE(HIGH) INDER BECKWITH MD Aug 01, 2024 13:19
[2024-08-01] MEDS: cefTRIAXone 1GM/50ML D5W 50 ML IV ONE (16:32)
[2024-08-02] VITALS (8 sets, daily range): BP systolic 136–173; BP diastolic 58–79; PULSE 66–95; RESP 14–18; TEMP 97.3–98.1; O2SAT 92–99
[2024-08-02] MEDS: cefTRIAXone 1GM/50ML D5W 50 ML IV SCH (09:19)
--- NOTE | 2024-08-02 09:53 | DVHPN2 ---
Reviewed: Care Plan, H&P, Labs, Medications, Previous Orders, Radiology Changes from previous H/P or p: No Changes Objective Vitals Vital Signs Date Time Temp Pulse Resp B/P (MAP) Pulse Ox O2 Delivery O2 Flow Rate FiO2 08/02/24 09:22 173/60 08/02/24 09:21 95 08/02/24 09:07 97.9 18 94 97.9 08/02/24 07:45 Room Air* 0 21 Intake/Output Intake and Output 08/02/24 07:00 Intake Total 2454 ml Balance 2454 ml Intake Oral 2454 ml # Voids 3 Medications Current Medications Medications Dose Ordered Sig/Hallie Route Start Time Stop Time Status Last Admin Dose Admin Atenolol 25 mg DAILY PO 08/01/24 10:00 08/02/24 09:21 25 MG Hydrochlorothiazide 25 mg DAILY PO 08/01/24 10:00 08/02/24 09:19 25 MG Lisinopril 20 mg DAILY PO 08/01/24 10:00 08/02/24 09:22 20 MG Acetaminophen/ Hydrocodone Bitart 1 tab Q4HP PRN PO 07/31/24 22:00 Ondansetron HCl 4 mg Q4HP PRN IV 07/31/24 22:00 Acetaminophen 650 mg Q6HP PRN PO 07/31/24 22:00 Ceftriaxone Sodium 50 ml @ 100 mls/hr DAILY@09 IV 08/02/24 09:00 08/02/24 09:19 100 MLS/HR Laboratory Results Laboratory Tests 07/31/24 19:29 08/01/24 09:54 Chemistry Test 08/01/24 09:54 Calcium Level 9.3 mg/dL (8.7-10.4) Urinalysis Test 08/01/24 12:00 Urine Color Yellow (Yellow) Urine Clarity Cloudy (Clear) H Urine pH 5.0 (5.0-9.0) Urine Specific [place] 1.015 (1.001-1.035) Urine Protein Trace (Negative) H Urine Ketones Negative (Negative) Urine Blood 1+ /uL (Negative) H Urine Nitrite Negative (Negative) Urine Bilirubin Negative (Negative) Urine Urobilinogen Normal mg/dL (Negative) Urine Leukocyte Esterase 3+ /uL (Negative) Urine RBC 5 /hpf (0 - 4) Urine WBC Clumps Present /hpf (None Seen) Urine Microscopic WBC 92 /HPF (0-5) H Urine Squamous Epithelial Cells Few /hpf (<5) Urine Bacteria Many /hpf (None Seen) H Urine Hyaline Casts Many /lpf (0 - 2) Urine Glucose Normal mg/dL (Normal) Labs and/or images reviewed: Labs reviewed by me, Image(s) reviewed by me Assessment/Plan Assessment/Plan Acute abdominal pain Sepsis secondary to urinary tract infection Acute pyelonephritis and UTI: Blood cultures pending urine cultures pending, continue Rocephin Acute gastroenteritis Acute hypokalemia Hypertension Acute dehydration Hep C antibody positive Time spent 45 minutes Plan discussed with: Patient My Orders Orders - INDER BECKWITH MD Procedure Category Date Status Time Blood Culture AYLIN 08/01/24 In Process 13:17 Urine Bacterial AYLIN 08/01/24 In Process Culture 13:17 Ceftriaxone 1gm/50ml PHA 08/02/24 In Process D5w (Rocephin) 09:00 Date of Service: Aug 02, 2024 Billing Provider: INDER BECKWITH MD Common Visit Codes: [id number] INP/OBS CARE(HIGH) INDER BECKWITH MD Aug 02, 2024 09:53
[2024-08-03] VITALS (8 sets, daily range): BP systolic 110–163; BP diastolic 51–96; PULSE 63–91; RESP 12–18; TEMP 97.2–97.6; O2SAT 97–100
--- NOTE | 2024-08-03 10:13 | DVHPN2 ---
Reviewed: Care Plan, H&P, Labs, Medications, Previous Orders, Radiology Changes from previous H/P or p: No Changes Objective Vitals Vital Signs Date Time Temp Pulse Resp B/P (MAP) Pulse Ox O2 Delivery O2 Flow Rate FiO2 08/03/24 09:09 163/96 08/03/24 09:09 74 08/03/24 08:30 97.4 16 99 97.4 08/03/24 08:00 Room Air* 0 21 Intake/Output Intake and Output 08/03/24 07:00 Intake Total 1270 ml Balance 1270 ml Intake Oral 1270 ml Medications Current Medications Medications Dose Ordered Sig/Hallie Route Start Time Stop Time Status Last Admin Dose Admin Atenolol 25 mg DAILY PO 08/01/24 10:00 08/03/24 09:09 25 MG Hydrochlorothiazide 25 mg DAILY PO 08/01/24 10:00 08/03/24 09:09 25 MG Lisinopril 20 mg DAILY PO 08/01/24 10:00 08/03/24 09:09 20 MG Acetaminophen/ Hydrocodone Bitart 1 tab Q4HP PRN PO 07/31/24 22:00 Ondansetron HCl 4 mg Q4HP PRN IV 07/31/24 22:00 Acetaminophen 650 mg Q6HP PRN PO 07/31/24 22:00 Ceftriaxone Sodium 50 ml @ 100 mls/hr DAILY@09 IV 08/02/24 09:00 08/02/24 09:19 100 MLS/HR Laboratory Results Laboratory Tests 07/31/24 19:29 08/01/24 09:54 Urinalysis Test 08/01/24 12:00 Urine Color Yellow (Yellow) Urine Clarity Cloudy (Clear) H Urine pH 5.0 (5.0-9.0) Urine Specific [place] 1.015 (1.001-1.035) Urine Protein Trace (Negative) H Urine Ketones Negative (Negative) Urine Blood 1+ /uL (Negative) H Urine Nitrite Negative (Negative) Urine Bilirubin Negative (Negative) Urine Urobilinogen Normal mg/dL (Negative) Urine Leukocyte Esterase 3+ /uL (Negative) Urine RBC 5 /hpf (0 - 4) Urine WBC Clumps Present /hpf (None Seen) Urine Microscopic WBC 92 /HPF (0-5) H Urine Squamous Epithelial Cells Few /hpf (<5) Urine Bacteria Many /hpf (None Seen) H Urine Hyaline Casts Many /lpf (0 - 2) Urine Glucose Normal mg/dL (Normal) Microbiology Microbiology Date/Time Source Procedure Growth Status 08/01/24 14:22 Blood Blood Culture - Preliminary NO GROWTH AFTER 24 HOURS OF INCUBATION. Resulted Labs and/or images reviewed: Labs reviewed by me, Image(s) reviewed by me Assessment/Plan Assessment/Plan Acute abdominal pain Sepsis secondary to urinary tract infection Acute pyelonephritis and UTI: Blood cultures negative, urine cultures pending, continue Rocephin Acute gastroenteritis Acute hypokalemia Hypertension: Lisinopril atenolol, hydrochlorothiazide, clonidine p.r.n. Acute dehydration Hep C antibody positive Time spent 45 minutes PCP Cherry William Plan discussed with: Patient My Orders Orders - INDER BECKWITH MD Procedure Category Date Status Time Lisinopril Tablet PHA 08/03/24 Logged (Zestril Tablet) 10:15 Clonidine Hcl Tablet PHA 08/03/24 Logged (Catapres Tablet) 10:15 Date of Service: Aug 03, 2024 Billing Provider: INDER BECKWITH MD Common Visit Codes: [id number] INP/OBS CARE(HIGH) INDER BECKWITH MD Aug 03, 2024 10:13
[2024-08-03] MEDS: cloNIDine HCL 0.1 MG TAB PO PRN (12:26)
[2024-08-04] VITALS (9 sets, daily range): BP systolic 122–184; BP diastolic 47–81; PULSE 60–71; RESP 16–22; TEMP 96.6–98.9; O2SAT 96–100
--- NOTE | 2024-08-04 09:34 | DVHPN2 ---
Reviewed: Care Plan, H&P, Labs, Medications, Previous Orders, Radiology Changes from previous H/P or p: No Changes Objective Vitals Vital Signs Date Time Temp Pulse Resp B/P (MAP) Pulse Ox O2 Delivery O2 Flow Rate FiO2 08/04/24 08:33 97.9 65 20 151/47 (81) 96 97.9 08/03/24 20:00 Room Air* 0 21 Medications Current Medications Medications Dose Ordered Sig/Hallie Route Start Time Stop Time Status Last Admin Dose Admin Atenolol 25 mg DAILY PO 08/01/24 10:00 08/03/24 09:09 25 MG Hydrochlorothiazide 25 mg DAILY PO 08/01/24 10:00 08/03/24 09:09 25 MG Acetaminophen/ Hydrocodone Bitart 1 tab Q4HP PRN PO 07/31/24 22:00 Ondansetron HCl 4 mg Q4HP PRN IV 07/31/24 22:00 Acetaminophen 650 mg Q6HP PRN PO 07/31/24 22:00 Ceftriaxone Sodium 50 ml @ 100 mls/hr DAILY@09 IV 08/02/24 09:00 08/02/24 09:19 100 MLS/HR Lisinopril 40 mg DAILY PO 08/04/24 10:00 Clonidine HCl 0.1 mg Q4HP PRN PO 08/03/24 10:15 08/04/24 00:10 0.1 MG Laboratory Results Laboratory Tests 07/31/24 19:29 08/01/24 09:54 Urinalysis Test 08/01/24 12:00 Urine Color Yellow (Yellow) Urine Clarity Cloudy (Clear) H Urine pH 5.0 (5.0-9.0) Urine Specific [place] 1.015 (1.001-1.035) Urine Protein Trace (Negative) H Urine Ketones Negative (Negative) Urine Blood 1+ /uL (Negative) H Urine Nitrite Negative (Negative) Urine Bilirubin Negative (Negative) Urine Urobilinogen Normal mg/dL (Negative) Urine Leukocyte Esterase 3+ /uL (Negative) Urine RBC 5 /hpf (0 - 4) Urine WBC Clumps Present /hpf (None Seen) Urine Microscopic WBC 92 /HPF (0-5) H Urine Squamous Epithelial Cells Few /hpf (<5) Urine Bacteria Many /hpf (None Seen) H Urine Hyaline Casts Many /lpf (0 - 2) Urine Glucose Normal mg/dL (Normal) Microbiology Microbiology Date/Time Source Procedure Growth Status 08/02/24 17:49 Stool Stool Culture - Preliminary Resulted 08/02/24 17:49 Stool Shiga Toxin I & II Pending Resulted 08/01/24 14:22 Blood Blood Culture - Preliminary NO GROWTH AFTER 48 HOURS OF INCUBATION. Resulted Labs and/or images reviewed: Labs reviewed by me, Image(s) reviewed by me Assessment/Plan Assessment/Plan Acute abdominal pain Sepsis secondary to urinary tract infection Acute pyelonephritis and UTI: Blood cultures negative, urine cultures pending, continue Rocephin Acute gastroenteritis stool studies negative Acute hypokalemia , improved Hypertension: Lisinopril atenolol, hydrochlorothiazide, clonidine p.r.n. Acute dehydration Hep C antibody positive Time spent 45 minutes PCP Cherry William Plan discussed with: Patient My Orders Orders - INDER BECKWITH MD Procedure Category Date Status Time Clonidine Hcl Tablet PHA 08/03/24 In Process (Catapres Tablet) 10:15 Lisinopril Tablet PHA 08/04/24 In Process (Zestril Tablet) 10:00 Date of Service: Aug 04, 2024 Billing Provider: INDER BECKWITH MD Common Visit Codes: [id number] INP/OBS CARE(HIGH) INDER BECKWITH MD Aug 04, 2024 09:34
[2024-08-04] MEDS: LISINOPRIL 20 MG TAB PO SCH (09:36)
[2024-08-05 01:00] VITALS: BP 112/50; PULSE 75; RESP 20; TEMP 98; O2SAT 98
[2024-08-05 05:00] VITALS: BP 133/67; PULSE 62; RESP 20; TEMP 97.6; O2SAT 100
[2024-08-05 08:00] VITALS: PULSE 65; RESP 18
[2024-08-05 09:00] VITALS: BP 139/74; PULSE 66; RESP 16; TEMP 97.3; O2SAT 98
--- NOTE | 2024-08-05 09:20 | DVHPN2 ---
Reviewed: Care Plan, H&P, Labs, Medications, Previous Orders, Radiology Changes from previous H/P or p: No Changes Objective Vitals Vital Signs Date Time Temp Pulse Resp B/P (MAP) Pulse Ox O2 Delivery O2 Flow Rate FiO2 08/05/24 05:00 97.6 62 20 133/67 (89) 100 97.6 08/04/24 20:00 Room Air* 0 21 Medications Current Medications Medications Dose Ordered Sig/Hallie Route Start Time Stop Time Status Last Admin Dose Admin Atenolol 25 mg DAILY PO 08/01/24 10:00 08/04/24 09:35 25 MG Hydrochlorothiazide 25 mg DAILY PO 08/01/24 10:00 08/04/24 09:35 25 MG Acetaminophen/ Hydrocodone Bitart 1 tab Q4HP PRN PO 07/31/24 22:00 Ondansetron HCl 4 mg Q4HP PRN IV 07/31/24 22:00 Acetaminophen 650 mg Q6HP PRN PO 07/31/24 22:00 Ceftriaxone Sodium 50 ml @ 100 mls/hr DAILY@09 IV 08/02/24 09:00 08/04/24 12:25 100 MLS/HR Lisinopril 40 mg DAILY PO 08/04/24 10:00 08/04/24 09:36 40 MG Clonidine HCl 0.1 mg Q4HP PRN PO 08/03/24 10:15 08/04/24 21:56 0.1 MG Laboratory Results Laboratory Tests 07/31/24 19:29 08/01/24 09:54 Urinalysis Test 08/01/24 12:00 Urine Color Yellow (Yellow) Urine Clarity Cloudy (Clear) H Urine pH 5.0 (5.0-9.0) Urine Specific [place] 1.015 (1.001-1.035) Urine Protein Trace (Negative) H Urine Ketones Negative (Negative) Urine Blood 1+ /uL (Negative) H Urine Nitrite Negative (Negative) Urine Bilirubin Negative (Negative) Urine Urobilinogen Normal mg/dL (Negative) Urine Leukocyte Esterase 3+ /uL (Negative) Urine RBC 5 /hpf (0 - 4) Urine WBC Clumps Present /hpf (None Seen) Urine Microscopic WBC 92 /HPF (0-5) H Urine Squamous Epithelial Cells Few /hpf (<5) Urine Bacteria Many /hpf (None Seen) H Urine Hyaline Casts Many /lpf (0 - 2) Urine Glucose Normal mg/dL (Normal) Microbiology Microbiology Date/Time Source Procedure Growth Status 08/02/24 17:49 Stool Stool Culture - Preliminary Resulted 08/02/24 17:49 Stool Shiga Toxin I & II Pending Resulted 08/01/24 14:22 Blood Blood Culture - Preliminary NO GROWTH AFTER 72 HOURS OF INCUBATION. Resulted Labs and/or images reviewed: Labs reviewed by me, Image(s) reviewed by me Assessment/Plan Assessment/Plan Acute abdominal pain Sepsis secondary to urinary tract infection Acute pyelonephritis and UTI: Blood cultures negative, urine cultures pending, continue Rocephin Acute gastroenteritis stool studies negative Acute hypokalemia , improved Hypertension: Lisinopril atenolol, hydrochlorothiazide, clonidine p.r.n. Acute dehydration Chronic Hep C Time spent 45 minutes PCP Cherry William Plan discussed with: Patient Date of Service: Aug 05, 2024 Billing Provider: INDER BECKWITH MD Common Visit Codes: [id number] INP/OBS CARE(HIGH) INDER BECKWITH MD Aug 05, 2024 09:20
[2024-08-05] MEDS ORDERED: CIPR-173 PO (09:27)
--- NOTE | 2024-08-05 09:33 | DVHDS2 ---
Discharge Summary Date of Admission Jul 31, 2024 at 21:59 Date of Discharge: Aug 05, 2024 Admitting Diagnosis Dizziness and weakness Wounds: None Labs/Diagnostic Data: Laboratory Results Test 08/01/24 12:00 08/01/24 09:54 07/31/24 19:29 Urine Color Yellow (Yellow) Urine Clarity Cloudy (Clear) Urine pH 5.0 (5.0-9.0) Urine Specific [place] 1.015 (1.001-1.035) Urine Protein Trace (Negative) Urine Ketones Negative (Negative) Urine Blood 1+ /uL (Negative) Urine Nitrite Negative (Negative) Urine Bilirubin Negative (Negative) Urine Urobilinogen Normal mg/dL (Negative) Urine Leukocyte Esterase 3+ /uL (Negative) Urine RBC 5 /hpf (0 - 4) Urine WBC Clumps Present /hpf (None Seen) Urine Microscopic WBC 92 /HPF (0-5) Urine Squamous Epithelial Cells Few /hpf (<5) Urine Bacteria Many /hpf (None Seen) Urine Hyaline Casts Many /lpf (0 - 2) Urine Glucose Normal mg/dL (Normal) Sodium Level 142 mmol/L (136-145) Potassium Level 3.6 mmol/L (3.5-5.1) Chloride Level 102 mmol/L (98-107) Carbon Dioxide Level 28 mmol/L (20-31) Anion Gap 12 (5-15) Blood Urea Nitrogen 19 mg/dL (9-23) Creatinine 1.38 mg/dL (0.550-1.02) Glomerular Filtration Rate Calc 37 mL/min (>90) BUN/Creatinine Ratio 13.8 (10.0-20.0) Serum Glucose 140 mg/dL (74-106) Calcium Level 9.3 mg/dL (8.7-10.4) Hepatitis B Surface Antigen Negative (Negative) Hepatitis C Antibody Reactive (Negative) White Blood Count 7.1 10^3/uL (4.4-10.8) Red Blood Count 5.95 10^6/uL (4.0-5.20) Hemoglobin 15.9 g/dL (12.2-16.2) Hematocrit 48.0 % (36.0-46.0) Mean Corpuscular Volume 80.7 fL (80.0-100.0) Mean Corpuscular Hemoglobin 26.7 pg (28.0-32.0) Mean Corpuscular Hemoglobin Concent 33.0 g/dL (32.0-36.0) Red Cell Distribution Width 13.8 % (11.8-14.3) Platelet Count 319 10^3/uL (140-450) Mean Platelet Volume 7.7 fL (6.9-10.8) Neutrophils (%) (Auto) 64.2 % (37.0-80.0) Lymphocytes (%) (Auto) 22.3 % (10.0-50.0) Monocytes (%) (Auto) 11.7 % (0.0-12.0) Eosinophils (%) (Auto) 1.3 % (0.0-7.0) Basophils (%) (Auto) 0.5 % (0.0-2.0) Neutrophils # (Auto) 4.6 10 ^3/uL (1.6-8.6) Lymphocytes # (Auto) 1.6 10 ^3/uL (0.4-5.4) Monocytes # (Auto) 0.8 10 ^3/uL (0-1.3) Eosinophils # (Auto) 0.1 10 ^3/uL (0-0.8) Basophils # (Auto) 0 10 ^3/uL (0-0.2) Nucleated Red Blood Cells 0.3 % Total Bilirubin 0.9 mg/dL (0.2-1.0) Aspartate Amino Transferase (AST) 26 U/L (13-40) Alanine Aminotransferase (ALT) 13 U/L (7-40) Alkaline Phosphatase 78 U/L (46-116) Total Protein 7.7 g/dL (5.7-8.2) Albumin 4.1 g/dL (3.2-4.8) Lipase 27 U/L (12-53) Other Laboratory Tests 08/01/24 09:54 07/31/24 19:29 Brief Hx & Hospital Course: 88-year-old female came in complaining of abdominal pain nausea and vomiting and generalized weakness found to have acute pyelonephritis and urinary tract infection treated with Rocephin blood cultures negative urine cultures pending also had mild gastroenteritis stool studies were negative acute hypokalemia resolved with the potassium replacement hypotension treated with the medications. Hep C antibodies positive, but patient is not aware of any previous infection. She will follow up with GI Dr. N Valente regarding hep C. Patient feels better stable vital signs and wants to go home discharged home on Cipro for UTI Consults/Reason for consult None Operations or Procedures CT abdomen pelvis without contrast Condition at Discharge: Fair Final Diagnosis/Problems List Acute abdominal pain Sepsis secondary to urinary tract infection Acute pyelonephritis and UTI: Blood cultures negative, urine cultures pending, continue Rocephin Acute gastroenteritis stool studies negative Acute hypokalemia , improved Hypertension: Lisinopril atenolol, hydrochlorothiazide, clonidine p.r.n. Acute dehydration Chronic Hep C Discharge Disposition: Home Discharge Instruct/Medications Diet: Cardiac 2g Na,low cholest Activity: Light activity Follow Up/Referral: Resume all previous home medications Follow up with the primary Dr in one week Follow up with GI DrElvin Victor in two weeks regarding your hepatitis C infection Medications: Cipro Transmitted to pharmacy 35 (Time taken for discharge summary 35 mts) Discharge Statement: "Patient was advised to return to the ER or call 911 if any headaches, dizziness, shortness of breath, chest pain, abdominal pain, bleeding, fevers, or worsening of medical condition. Patient was counseled about treatment plan, medications, possible side effects, patientverbalized understanding. All questions were answered to the best of my ability. This discharge took greater then 30 minutes in planning, reviewing documentation, counseling the patient, and discussing with other team members." ASSESSMENT ASSESSMENT Hospital Course Improved Assessment Acute abdominal pain Sepsis secondary to urinary tract infection Acute pyelonephritis and UTI: Blood cultures negative, urine cultures pending, continue Rocephin Acute gastroenteritis stool studies negative Acute hypokalemia , improved Hypertension: Lisinopril atenolol, hydrochlorothiazide, clonidine p.r.n. Acute dehydration Chronic Hep C Date of Service: Aug 05, 2024 Billing Provider: INDER BECKWITH MD Common Visit Codes: [id number] INP/OBS CARE(HIGH) INDER BECKWITH MD Aug 05, 2024 09:33
--- NOTE | 2024-08-05 09:35 | DVHPN2 ---
Reviewed: Care Plan, H&P, Labs, Medications, Previous Orders, Radiology Changes from previous H/P or p: No Changes Objective Vitals Vital Signs Date Time Temp Pulse Resp B/P (MAP) Pulse Ox O2 Delivery O2 Flow Rate FiO2 08/05/24 09:23 66 139/74 08/05/24 05:00 97.6 20 100 97.6 08/04/24 20:00 Room Air* 0 21 Medications Current Medications Medications Dose Ordered Sig/Hallie Route Start Time Stop Time Status Last Admin Dose Admin Atenolol 25 mg DAILY PO 08/01/24 10:00 08/05/24 09:23 25 MG Hydrochlorothiazide 25 mg DAILY PO 08/01/24 10:00 08/05/24 09:21 25 MG Acetaminophen/ Hydrocodone Bitart 1 tab Q4HP PRN PO 07/31/24 22:00 Ondansetron HCl 4 mg Q4HP PRN IV 07/31/24 22:00 Acetaminophen 650 mg Q6HP PRN PO 07/31/24 22:00 Ceftriaxone Sodium 50 ml @ 100 mls/hr DAILY@09 IV 08/02/24 09:00 08/05/24 09:21 100 MLS/HR Lisinopril 40 mg DAILY PO 08/04/24 10:00 08/05/24 09:22 40 MG Clonidine HCl 0.1 mg Q4HP PRN PO 08/03/24 10:15 08/04/24 21:56 0.1 MG Laboratory Results Laboratory Tests 07/31/24 19:29 08/01/24 09:54 Urinalysis Test 08/01/24 12:00 Urine Color Yellow (Yellow) Urine Clarity Cloudy (Clear) H Urine pH 5.0 (5.0-9.0) Urine Specific [place] 1.015 (1.001-1.035) Urine Protein Trace (Negative) H Urine Ketones Negative (Negative) Urine Blood 1+ /uL (Negative) H Urine Nitrite Negative (Negative) Urine Bilirubin Negative (Negative) Urine Urobilinogen Normal mg/dL (Negative) Urine Leukocyte Esterase 3+ /uL (Negative) Urine RBC 5 /hpf (0 - 4) Urine WBC Clumps Present /hpf (None Seen) Urine Microscopic WBC 92 /HPF (0-5) H Urine Squamous Epithelial Cells Few /hpf (<5) Urine Bacteria Many /hpf (None Seen) H Urine Hyaline Casts Many /lpf (0 - 2) Urine Glucose Normal mg/dL (Normal) Microbiology Microbiology Date/Time Source Procedure Growth Status 08/02/24 17:49 Stool Stool Culture - Preliminary Resulted 08/02/24 17:49 Stool Shiga Toxin I & II Pending Resulted 08/01/24 14:22 Blood Blood Culture - Preliminary NO GROWTH AFTER 72 HOURS OF INCUBATION. Resulted Labs and/or images reviewed: Labs reviewed by me, Image(s) reviewed by me Assessment/Plan Assessment/Plan Acute abdominal pain Sepsis secondary to urinary tract infection Acute pyelonephritis and UTI: Blood cultures negative, urine cultures pending, continue Rocephin Acute gastroenteritis stool studies negative Acute hypokalemia , improved Hypertension: Lisinopril atenolol, hydrochlorothiazide, clonidine p.r.n. Acute dehydration Chronic Hep C Time spent 45 minutes PCP Cherry William Plan discussed with: Patient My Orders Orders - INDER BECKWITH MD Procedure Category Date Status Time Discharge DISCHARGE 08/05/24 Transmitted 09:25 Date of Service: Aug 05, 2024 Billing Provider: INDER BECKWITH MD Common Visit Codes: [id number] INP/OBS CARE(HIGH) INDER BECKWITH MD Aug 05, 2024 09:35
== END 2024-08-05 11:50 | disposition home or self-care (01) | DRG 391 ==
LOC: ER 18:54 → OVERFLOW 21:59 → CENTRAL 08-01 03:53
PROVIDERS: ADMIT Family Medicine; ATTEND Family Medicine
PROC: 05HA33Z Insertion of Infusion Device into Left Brachial Vein, Percutaneous Approach (ICD-10-PCS; principal; 2024-08-04)
PROC: B54NZZA Ultrasonography of Left Upper Extremity Veins, Guidance (ICD-10-PCS; 2024-08-04)
DX: K52.9 Noninfective gastroenteritis and colitis, unspecified (principal); N17.0 Acute kidney failure with tubular necrosis; N10 Acute pyelonephritis; B18.2 Chronic viral hepatitis C; N18.9 Chronic kidney disease, unspecified; I12.9 Hypertensive chronic kidney disease with stage 1 through stage 4 chronic kidney disease, or unspecified chronic kidney disease; E86.0 Dehydration; E87.6 Hypokalemia; I25.10 Atherosclerotic heart disease of native coronary artery without angina pectoris; K80.20 Calculus of gallbladder without cholecystitis without obstruction; Z88.0 Allergy status to penicillin; Z79.899 Other long term (current) drug therapy; Z90.49 Acquired absence of other specified parts of digestive tract; Z90.710 Acquired absence of both cervix and uterus
CPT/HCPCS: 36415; 74176; 80048; 80053; 81001; 83690; 85025; 86803; 87040; 87045; 87086; 87340; 87427; 93005; 96374; G0378; J2405